=== PATIENT | male | born 1995 | race Caucasian/White ===

== ENCOUNTER → 2016-06-09 | Outpatient (REF) | LOC: WSOH 13:07 | DX: Z02.1 Encounter for pre-employment examination (principal) ==

== ENCOUNTER → 2016-06-09 | Outpatient (REF) | LOC: WSOH 13:04 | DX: Z00.00 Encounter for general adult medical examination without abnormal findings (principal) ==

== ENCOUNTER → 2016-06-16 | Outpatient (REF) | LOC: WSOH 08:15 | DX: Z11.1 Encounter for screening for respiratory tuberculosis (principal) ==